=== PATIENT | female | born 1975 | race Caucasian/White ===

== ENCOUNTER 2016-12-23 17:35 | Emergency (ER) | payer OTHER ==
[2016-12-23] MEDS ORDERED: ONDANSETRON 4 MG TAB.RAPDIS PO ONE (18:06)
[2016-12-23] MEDS ORDERED: PROCHLORPERAZINE MALEATE 10 MG TABLET PO ONE (18:06)
--- NOTE | 2016-12-23 18:43 | RADIOLOGY REPORT (SQ) ---
EXAM DESCRIPTION: CT HEAD WITHOUT COMPLETED DATE/TIME: 12/23/2016 6:32 pm REASON FOR STUDY: headache right arm numb COMPARISON: None. TECHNIQUE: Axial images acquired through the brain without intravenous contrast. Images reviewed wi th bone, brain and subdural windows. Images stored on PACS. All CT scanners at this facility use dose modulation, iterative reconstruction, and/or weight based d osing when appropriate to reduce radiation dose to as low as reasonably achievable (ALARA). [facility]: Dose Right [facility]: CareDose [facility]: Dose Right [facility]: Teradose 4D [facility]: [employer] RADIATION DOSE: Up-to-date CT equipment and radiation dose reduction techniques were employed. CTDIv ol: 64.6 mGy. DLP: 1163 mGy-cm. mGy. LIMITATIONS: None. FINDINGS: VENTRICLES: Normal size and contour. CEREBRUM: No masses. No hemorrhage. No midline shift. No evidence for acute infarction. Normal gra y/white matter differentiation. No areas of low density in the white matter. CEREBELLUM: No masses. No hemorrhage. No alteration of density. No evidence for acute infarction. EXTRAAXIAL SPACES: No fluid collections. No masses. ORBITS AND GLOBE: No intra- or extraconal masses. Normal contour of globe without masses. CALVARIUM: No fracture. PARANASAL SINUSES: No fluid or mucosal thickening. SOFT TISSUES: No mass or hematoma. OTHER: No other significant finding. IMPRESSION: NORMAL BRAIN CT WITHOUT CONTRAST. EVIDENCE OF ACUTE STROKE: NO. COMMENT: Quality ID # [id number]: Final reports with documentation of one or more dose reduction techniques (e.g., Automated exposure control, adjustment of the mA and/or kV according to patient size, use of iterative reconstruction technique) TECHNICAL DOCUMENTATION: JOB ID: [id number]- All Rights Reserved
--- NOTE | 2016-12-23 19:06 | RADIOLOGY REPORT (SQ) ---
EXAM DESCRIPTION: CERV SP 4 OR 5 VIEWS COMPLETED DATE/TIME: 12/23/2016 6:43 pm REASON FOR STUDY: headache right arm numb COMPARISON: None. NUMBER OF VIEWS: Five views. TECHNIQUE: AP, lateral, obliques and odontoid radiographic images acquired of the cervical spine. LIMITATIONS: None. FINDINGS: MINERALIZATION: Normal. ALIGNMENT: Anatomic. VERTEBRAE: Vertebral bodies of normal height. DISCS: No significant osteophytes or sclerosis. Disc height maintained. FORAMINA: No osteophytes or foraminal narrowing. LATERAL AND POSTERIOR ELEMENTS: Facets, lateral masses and spinous processes without significant find ings. HARDWARE: None in the spine. SOFT TISSUES: No masses or calcifications. Lung apices clear. OTHER: No other significant finding. IMPRESSION: NO SIGNIFICANT RADIOGRAPHIC FINDING IN THE CERVICAL SPINE. TECHNICAL DOCUMENTATION: JOB ID: [id number]- All Rights Reserved
--- NOTE | 2016-12-23 19:34 | ER Document Report ---
ED General - General Chief Complaint: Headache Stated Complaint: HEADACHE,BLURRED VISION,HAND NUMBNESS Time Seen by Provider: 12/23/16 18:12 TRAVEL OUTSIDE OF THE [place] IN LAST 30 DAYS: No - HPI Patient complains to provider of: Headache Notes: Patient coming in for a headache her right hand numbness. 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 No recent trauma. Patient states currently seeing a neurologist however has not been placed in the migraine medication. Patient states head CT and MRI approximately 2011 which were both negative. Patient otherwise states she is concerned now because of the hand numbness. Patient states sometimes will occur in the left hand as well. Denies any fever chills nausea vomiting. Patient otherwise is resting currently upon my evaluation - Related Data Allergies/Adverse Reactions: No Known Allergies Allergy (Verified 12/23/16 17:40) Past Medical History - Social History Smoking Status: Unknown if Ever Smoked Family History: Reviewed & Not Pertinent Patient has suicidal ideation: No Patient has homicidal ideation: No - Past Medical History Cardiac Medical History: Denies: Hx Coronary Artery Disease, Hx Heart Attack, Hx Hypertension Pulmonary Medical History: Denies: Hx Asthma, Hx Bronchitis, Hx COPD, Hx Pneumonia Neurological Medical History: Reports: Hx Migraine. Denies: Hx Cerebrovascular Accident, Hx Seizures Renal/ Medical History: Denies: Hx Peritoneal Dialysis Musculoskeltal Medical History: Denies Hx Arthritis Past Surgical History: Reports: Hx Hysterectomy. Denies: Hx Pacemaker - Immunizations Hx Diphtheria, Pertussis, Tetanus Vaccination: Yes - 2002 Review of Systems - Review of Systems Constitutional: No symptoms reported EENT: No symptoms reported Cardiovascular: No symptoms reported Respiratory: No symptoms reported Gastrointestinal: No symptoms reported Genitourinary: No symptoms reported Female Genitourinary: No symptoms reported Musculoskeletal: No symptoms reported Skin: No symptoms reported Hematologic/Lymphatic: No symptoms reported Neurological/Psychological: Headaches, Numbness -: Yes All other systems reviewed and negative Physical Exam - Vital signs Vitals: Temp Pulse Resp BP Pulse Ox 98.0 F 94 18 124/82 99 12/23/16 17:41 12/23/16 17:41 12/23/16 17:41 12/23/16 17:41 12/23/16 17:41 Interpretation: Normal - General General appearance: Appears well, Alert - HEENT Head: Normocephalic, Atraumatic Eyes: Normal Pupils: PERRL - Respiratory Respiratory status: No respiratory distress Chest status: Nontender Breath sounds: Normal Chest palpation: Normal - Cardiovascular Rhythm: Regular Heart sounds: Normal auscultation Murmur: No - Abdominal Inspection: Normal Distension: No distension Bowel sounds: Normal Tenderness: Nontender Organomegaly: No organomegaly - Back Back: Normal, Nontender - Extremities General upper extremity: Normal inspection, Nontender, Normal color, Normal ROM , Normal temperature, Other - Patient with reproduction of numbness tingling with Phalen's test. General lower extremity: Normal inspection, Nontender, Normal color, Normal ROM , Normal temperature, Normal weight bearing. No: Ana's sign - Neurological Neuro grossly intact: Yes Cognition: Normal Orientation: AAOx4 [place] Coma Scale Eye Opening: Spontaneous [place] Coma Scale Verbal: Oriented [place] Coma Scale Motor: Obeys Commands [place] Coma Scale Total: 15 Speech: Normal Motor strength normal: LUE, RUE, LLE, RLE Sensory: Normal - Psychological Associated symptoms: Normal affect, Normal mood - Skin Skin Temperature: Warm Skin Moisture: Dry Skin Color: Normal Course - Re-evaluation Re-evalutation: 12/23/16 19:49 The patient presents with headache without signs of [employer] bleed, stroke, infection , or other serious etiology. The patient is neurologically intact. Given the extremely low risk of these diagnoses further testing and evaluation for these possibilities does not appear to be indicated at this time. The patient has been instructed to return if the symptoms worsen or change in any way.. Patient artery had EMG testing performed she relate this to me at the time of discharge. She is to follow-up Tuesday with her neurologist. Otherwise will discharge patient home with Toradol patient is requesting a Toradol shot at this time. - Vital Signs Vital signs: Temp Pulse Resp BP Pulse Ox 98.0 F 94 18 124/82 99 12/23/16 17:41 12/23/16 17:41 12/23/16 17:41 12/23/16 17:41 12/23/16 17:41 Discharge - Discharge Clinical Impression: Migraine headache Qualifiers: Migraine type: unspecified Status migrainosus presence: without status migrainosus Intractability: not intractable Qualified Code(s): G43.909 - Migraine, unspecified, not intractable, without status migrainosus Condition: Good Instructions: Toradol Injection ([facility]), Headache ([facility]), Numbness or Paresthesia ([facility]) Additional Instructions: Please follow-up with your neurologist for your EMG testing. Return to the ER symptoms worsen. Take medications as prescribed. Drink plenty water to stay hydrated. Prescriptions: Ketorolac Tromethamine [Toradol 10 mg Tablet] 10 mg PO Q8HP PRN #30 tablet PRN Reason: Forms: Return to Work
[2016-12-23] MEDS ORDERED: KETOROLAC TROMETHAMINE 60 MG/2 ML SDV IM ONE (19:49)
[2016-12-23 19:53] VITALS: BP 127/78
== END 2016-12-23 19:59 | disposition home or self-care (01) ==
LOC: ER 17:35
DX: G43.909 Migraine, unspecified, not intractable, without status migrainosus (principal); R20.0 Anesthesia of skin; R20.2 Paresthesia of skin; Z86.69 Personal history of other diseases of the nervous system and sense organs
CPT/HCPCS: 99284; 96372; 72050; 70450; J1885; S0119; S0183

== ENCOUNTER 2017-07-11 15:38 | Emergency (ER) | payer OTHER ==
[2017-07-11] MEDS ORDERED: KETOROLAC TROMETHAMINE INJ/PF 30 MG/1 ML SDV IM ONE (17:06)
--- NOTE | 2017-07-11 17:09 | ER Document Report ---
ED Neck/Back Problem - General Chief Complaint: Low Back Pain Stated Complaint: LOWER BACK PAIN Time Seen by Provider: 07/11/17 16:43 Mode of Arrival: Ambulatory Information source: Patient TRAVEL OUTSIDE OF THE [place] IN LAST 30 DAYS: No - HPI Patient complains to provider of: Pain, Lower back Notes: Patient is here with complaints of low back pain. The patient states that she was at her doctor's office due to a migraine headache and received a shot of Toradol and her right boot. Headache seemed to improve. The following day which was last she developed some low back pain. She states that if she is not moving she has no pain, when she moves she has pain in her lower back. The pain does not radiate down the legs. She denies any bowel or bladder dysfunction. She is on no blood thinners. She denies IV drug use. She denies fever. She denies abdominal pain. No nausea, vomiting, diarrhea. No rash. No weakness. No chest pain or shortness of breath. She denies any trauma or fall. No dysuria or hematuria. No other complaints at this time. - Related Data Allergies/Adverse Reactions: No Known Allergies Allergy (Verified 06/08/17 16:36) Past Medical History - Social History Smoking Status: Current Every Day Smoker Chew tobacco use (# tins/day): No Frequency of alcohol use: None Drug Abuse: None Family History: Reviewed & Not Pertinent Patient has suicidal ideation: No Patient has homicidal ideation: No - Past Medical History Cardiac Medical History: Denies: Hx Coronary Artery Disease, Hx Heart Attack, Hx Hypertension Pulmonary Medical History: Denies: Hx Asthma, Hx Bronchitis, Hx COPD, Hx Pneumonia Neurological Medical History: Reports: Hx Migraine. Denies: Hx Cerebrovascular Accident, Hx Seizures Renal/ Medical History: Denies: Hx Peritoneal Dialysis Musculoskeltal Medical History: Denies Hx Arthritis Past Surgical History: Reports: Hx Hysterectomy. Denies: Hx Pacemaker - Immunizations Hx Diphtheria, Pertussis, Tetanus Vaccination: Yes - 2002 Review of Systems - Review of Systems -: Yes All other systems reviewed and negative Physical Exam - Vital signs Vitals: Temp Pulse Resp BP Pulse Ox 98.4 F 123 H 20 126/87 H 98 07/11/17 15:47 07/11/17 15:47 07/11/17 15:47 07/11/17 15:47 07/11/17 15:47 - Notes Notes: GENERAL: alert, cooperative, nontoxic, no distress. HEAD: normocephalic, atraumatic EYES: conjunctiva pink without discharge, no external redness or swelling. EARS: no external swelling, no external redness NOSE: atraumatic, no external swelling MOUTH/THROAT: mucous membranes moist and pink, posterior pharynx without erythema, swelling, exudate. No trismus or drooling. NECK: soft, supple, full range of motion, no meningismus. CHEST: no distress, lungs clear and equal throughout. No wheezing, rales, rhonchi. CARDIAC: regular rate and rhythm, no murmur, normal capillary refill, normal pulses. No peripheral edema noted. ABDOMEN: soft, mild suprapubic tenderness. No rebound tenderness or guarding, no pusatile mass. BACK: No CVA tenderness. Tenderness to the midline upper lumbar spine. No step -offs or crepitus. No rash. Full range of motion but with pain. EXTREMITIES: full range of motion of all extremities. No redness, no swelling. NEURO: alert and oriented A&O x 3, no focal deficits, full range of motion of all extremities. 5 out of 5 flexion and extension of the lower extremities bilaterally. Patellar and Achilles deep tendon reflexes are +2 bilaterally. Normal sensation with no saddle anesthesia. Patient can dorsiflex the great toes bilaterally. PYSCH: appropriate mood, affect. Patient is cooperative. SKIN: pink, warm, dry, no rash. Course - Re-evaluation Re-evalutation: 07/11/17 18:25 Patient states that she is feeling better at this time. She is nontoxic- appearing with stable vitals. Patient is here with some low back pain. The pain is only present with movement and touching the area. She had no trauma or fall. She is on no blood thinners. She has no risk or signs of cauda equina, epidural abscess/bleed, discitis, osteomyelitis, AAA, pyelonephritis. She did have some mild suprapubic tenderness on exam. Her urinalysis shows no signs of UTI. Patient is feeling better after Toradol. She will be discharged home with prescription for Naprosyn and Zanaflex. She is instructed to follow-up with her doctor if not better in the next 5 days, sooner for worsening pain, high fever, system vomiting, severe abdominal pain, or for any further concerns. The patient is noted to have elevated blood pressure during today's emergency department visit. The patient was informed of this finding. The patient was instructed that this may be related to pre-hypertension and requires further evaluation with a primary care provider. The patient has no hypertensive symptoms at this time. The patient's emergency department workup and current diagnosis were explained to the patient and or family. Follow-up instructions were provided. Medications if prescribed were discussed. Instructions for when to return to the emergency department including specific worrisome symptoms were discussed with the patient and/or family. - Vital Signs Vital signs: Temp Pulse Resp BP Pulse Ox 98.4 F 123 H 20 126/87 H 98 07/11/17 15:47 07/11/17 15:47 07/11/17 15:47 07/11/17 15:47 07/11/17 15:47 Discharge - Discharge Clinical Impression: Low back pain Qualifiers: Chronicity: acute Back pain laterality: midline Sciatica presence: without sciatica Qualified Code(s): M54.5 - Low back pain Condition: Stable Disposition: HOME, SELF-CARE Instructions: Low Back Pain ([facility]) Additional Instructions: Take medication as prescribed. Follow-up with your doctor if not better in 5 days. Follow-up sooner for worsening pain, fever, severe abdominal pain, persistent vomiting, difficulty controlling her bowels or bladder, numbness, tingling, weakness, or for any further concerns. Your blood pressure was elevated during today's visit. Have this rechecked with your doctor. Prescriptions: Naproxen [Naprosyn] 500 mg PO BID #20 tablet Tizanidine HCl [Zanaflex 4 Mg Tablet] 4 mg PO BID PRN #10 tablet PRN Reason: Forms: Elevated Blood Pressure, Smoking Cessation Education Referrals: [facility] [Provider Group] - Follow up as needed
[2017-07-11 18:01] LABS: APPEARANCE,URINE SLIGHTLY-CLOUDY; BILIRUBIN,URINE NEGATIVE (NEGATIVE); COLOR,URINE YELLOW; GLUCOSE, URINE NEGATIVE (NEGATIVE); KETONES,URINE NEGATIVE (NEGATIVE); LEUKOCYTE ESTERASE,URINE NEGATIVE (NEGATIVE); NITRITE,URINE NEGATIVE (NEGATIVE); PROTEIN,URINE NEGATIVE (NEGATIVE); URINE SPECIFIC GRAVITY 1.031; UROBILINOGEN,URINE NEGATIVE mg/dL (<2.0)
[2017-07-11 18:29] VITALS: BP 128/77
== END 2017-07-11 18:35 | disposition home or self-care (01) ==
LOC: ER 15:38
DX: M54.5 Low back pain (principal); F17.200 Nicotine dependence, unspecified, uncomplicated; R03.0 Elevated blood-pressure reading, without diagnosis of hypertension
CPT/HCPCS: 99283; 96372; 81001; J1885

== ENCOUNTER 2018-04-05 15:10 | Emergency (ER) | payer BC, OTHER ==
[2018-04-05 15:17] VITALS: BP 133/89
[2018-04-05] MEDS ORDERED: DIPHENHYDRAMINE HCL 50 MG/ML VIAL IV ONE (15:52)
[2018-04-05] MEDS ORDERED: NORMAL SALINE 1000 ML 1,000 ML IV ONE (15:52)
[2018-04-05] MEDS ORDERED: KETOROLAC TROMETHAMINE INJ/PF 30 MG/1 ML SDV IV ONE (15:52)
[2018-04-05] MEDS ORDERED: PROCHLORPERAZINE EDISYLATE INJ 10 MG/2 ML VIAL IV ONE (15:52)
[2018-04-05 16:37] LABS: A TYPE INFLUENZA AG NEGATIVE (NEGATIVE); B INFLUENZA AG NEGATIVE (NEGATIVE)
--- NOTE | 2018-04-05 16:46 | ER Document Report ---
ED Medical Screen (RME) - General Chief Complaint: Flu Symptoms Stated Complaint: FLU LIKE SYMPTOMS Time Seen by Provider: 04/05/18 15:31 Mode of Arrival: Ambulatory Information source: Patient Notes: Patient presents complaining of fever off and on for the past 3 days subjectively. Patient reports occipital headache pain that is not responsive to her usual migraine medications. Patient complains of nausea left flank pain and generalized body aches. I have greeted and performed a rapid initial assessment of this patient. A comprehensive ED assessment and evaluation of the patient, analysis of test results and completion of the medical decision making process will be conducted by additional ED providers. TRAVEL OUTSIDE OF THE [place] IN LAST 30 DAYS: No - Related Data Allergies/Adverse Reactions: No Known Allergies Allergy (Verified 06/08/17 16:36) Past Medical History - Social History Frequency of alcohol use: Rare Drug Abuse: None Family history: Reviewed & Not Pertinent - Past Medical History Cardiac Medical History: Denies: Hx Coronary Artery Disease, Hx Heart Attack, Hx Hypertension Pulmonary Medical History: Denies: Hx Asthma, Hx Bronchitis, Hx COPD, Hx Pneumonia Neurological Medical History: Reports: Hx Migraine. Denies: Hx Cerebrovascular Accident, Hx Seizures Renal/ Medical History: Denies: Hx Peritoneal Dialysis Musculoskeltal Medical History: Denies Hx Arthritis Past Surgical History: Reports: Hx Hysterectomy. Denies: Hx Pacemaker - Immunizations Hx Diphtheria, Pertussis, Tetanus Vaccination: Yes - 2002 Physical Exam - Vital signs Vitals: Temp Pulse Resp BP Pulse Ox 99.1 F 95 16 133/89 H 100 04/05/18 15:15 04/05/18 15:15 04/05/18 15:15 04/05/18 15:15 04/05/18 15:15 - HEENT Neck: Normal, Supple. No: Lymphadenopathy, Meningismus - Neurological Cognition: Normal Orientation: AAOx4 [place] Coma Scale Eye Opening: Spontaneous Milka Coma Scale Verbal: Oriented [place] Coma Scale Motor: Obeys Commands [place] Coma Scale Total: 15 Course - Vital Signs Vital signs: Temp Pulse Resp BP Pulse Ox 99.1 F 95 16 133/89 H 100 04/05/18 15:15 04/05/18 15:15 04/05/18 15:15 04/05/18 15:15 04/05/18 15:15
[2018-04-05 16:55] LABS: APPEARANCE,URINE CLEAR; BILIRUBIN,URINE NEGATIVE (NEGATIVE); COLOR,URINE YELLOW; GLUCOSE, URINE NEGATIVE (NEGATIVE); KETONES,URINE NEGATIVE (NEGATIVE); LEUKOCYTE ESTERASE,URINE NEGATIVE (NEGATIVE); NITRITE,URINE NEGATIVE (NEGATIVE); PROTEIN,URINE NEGATIVE (NEGATIVE); URINE SPECIFIC GRAVITY 1.019
--- NOTE | 2018-04-05 17:50 | ER Document Report ---
ED General - General Chief Complaint: Flu Symptoms Stated Complaint: FLU LIKE SYMPTOMS Time Seen by Provider: 04/05/18 15:31 Mode of Arrival: Ambulatory Notes: 42-year-old female presents to the emergency department for flulike symptoms and a headache. Patient states she cannot get rid of her headache even with her prescription medications. Patient states it is in the back of her head in the occipital area. She complains of fever, headache, neck ache, body aches that started on Tuesday. She denies any neck stiffness, earache, sore throat, lightheadedness or dizziness, chest pain or shortness of breath, nausea /vomiting/diarrhea. She has no other complaints. TRAVEL OUTSIDE OF THE [place] IN LAST 30 DAYS: No - Related Data Allergies/Adverse Reactions: No Known Allergies Allergy (Verified 06/08/17 16:36) Past Medical History - General Information source: Patient - Social History Smoking Status: Current Every Day Smoker Frequency of alcohol use: Rare Drug Abuse: None Family History: Reviewed & Not Pertinent Patient has suicidal ideation: No Patient has homicidal ideation: No - Past Medical History Cardiac Medical History: Denies: Hx Coronary Artery Disease, Hx Heart Attack, Hx Hypertension Pulmonary Medical History: Denies: Hx Asthma, Hx Bronchitis, Hx COPD, Hx Pneumonia Neurological Medical History: Reports: Hx Migraine. Denies: Hx Cerebrovascular Accident, Hx Seizures Renal/ Medical History: Denies: Hx Peritoneal Dialysis Musculoskeletal Medical History: Denies Hx Arthritis Past Surgical History: Reports: Hx Hysterectomy. Denies: Hx Pacemaker - Immunizations Hx Diphtheria, Pertussis, Tetanus Vaccination: Yes - 2002 Review of Systems - Review of Systems Constitutional: See HPI EENT: See HPI Cardiovascular: See HPI Respiratory: See HPI Gastrointestinal: See HPI Genitourinary: No symptoms reported Female Genitourinary: No symptoms reported Musculoskeletal: No symptoms reported Skin: No symptoms reported Hematologic/Lymphatic: No symptoms reported Neurological/Psychological: No symptoms reported Physical Exam - Vital signs Vitals: Temp Pulse Resp BP Pulse Ox 99.1 F 95 16 133/89 H 100 04/05/18 15:15 04/05/18 15:15 04/05/18 15:15 04/05/18 15:15 04/05/18 15:15 - Notes Notes: PHYSICAL EXAMINATION: Reviewed vital signs and charting by RN GENERAL: Alert, interacts well. No acute distress. HEAD: Normocephalic, atraumatic. EYES: Pupils equal, round. Extraocular movements intact. ENT: Oral mucosa moist, tongue midline. NECK: Full range of motion. Supple. Trachea midline. LUNGS: Clear to auscultation bilaterally, no wheezes, rales, or rhonchi. No respiratory distress. HEART: Regular rate and rhythm. No murmur ABDOMEN: soft, non-tender. Non-distended. Bowel sounds present in all 4 quadrants. no McBurney's point tenderness, no Bee sign. EXTREMITIES: Moves all 4 extremities spontaneously. No edema, No cyanosis. NEUROLOGICAL: Alert and oriented. Normal speech. PSYCH: Normal affect, normal mood. SKIN: Warm, dry, normal turgor. No rashes or lesions noted. Course - Re-evaluation Re-evalutation: 04/05/18 17:48 Very well-appearing 6-year-old female who upon greeting stated she wanted to leave and asked when she could leave. She states her headache is completely resolved and she feels much better. Patient was initially given a migraine cocktail. She states her symptoms have completely resolved. Physical exam was unremarkable. Urinalysis was normal. No concern at this point. No focal neuro deficits. Patient is safe and stable for discharge home. - Vital Signs Vital signs: Temp Pulse Resp BP Pulse Ox 99.1 F 95 16 133/89 H 100 04/05/18 15:15 04/05/18 15:15 04/05/18 15:15 04/05/18 15:15 04/05/18 15:15 - Laboratory Laboratory results interpreted by me: 04/05/18 16:18 Urine Urobilinogen 2.0 H Discharge - Discharge Clinical Impression: Flu-like symptoms Condition: Good Disposition: HOME, SELF-CARE Additional Instructions: You are seen in the emergency department this afternoon for flulike symptoms and headache. Your symptoms resolved with a migraine cocktail. Your urinalysis was normal. Your physical exam showed no concerning findings. If you develop ifeanyi re headache with altered mental status, weakness in one or any of your extremities, slurred speech, pass out, or have any other concerning symptoms please immediately return to the emergency department.
== END 2018-04-05 18:19 | disposition home or self-care (01) ==
LOC: ER 15:10
DX: J11.1 Influenza due to unidentified influenza virus with other respiratory manifestations (principal); R51 Headache; R50.9 Fever, unspecified; M54.2 Cervicalgia; M79.10 Myalgia, unspecified site; F17.200 Nicotine dependence, unspecified, uncomplicated
CPT/HCPCS: 99283; 96361; 96374; 96375; 81001; 87804; J1200; J1885; J0780; J7030